=== PATIENT | male | born 1995 | race Two or more races ===

== ENCOUNTER 2018-03-06 19:59 | Inpatient (IN) | payer MEDICAID, OTHER ==
[~2018-03-06] VITALS: Ht 152.4 cm; Wt 56.0 kg
[2018-03-07 05:14] LABS: Basophils # (auto) 0 uL; Basophils % (auto) 0.1 % (0.0-2.0); Eosinophils # (auto) 0 uL; Hematocrit 41.9 % (36.0-46.0); Hemoglobin 14.5 g/dL (12.2-16.2); Lymphocytes # (auto) 1.4 uL; Lymphocytes % (auto) 8.4 % (10.0-50.0); Mean Corpuscular Hemoglobin 30.7 pg (28.0-32.0); Mean Corpuscular Hgb Conc. 34.6 g/dL (32.0-36.0); Mean Corpuscular Volume 88.8 fL (80.0-100.0); Monocytes % (auto) 6.1 % (0.0-12.0); Neutrophils # (auto) 14.4 uL; Neutrophils % (auto) 85.4 % (37.0-80.0); Nucleated Red Blood Cells % 0.1 %; Platelet Count (auto) 289 10^3/uL (140-450); Red Blood Cells 4.72 10^6/uL (4.0-5.20); Urine Bacteria NONE SEEN /hpf (None Seen); Urine Blood Negative /uL (Negative); Urine WBC <1 /hpf (0 - 5); White Blood Cell 16.9 10^3/uL (4.4-10.8)
[2018-03-07 05:28] LABS: Alcohol, Urine < 3.0 mg/dL (0-5); Amphetamine Screen, Urine NEGATIVE (NEGATIVE); Barbiturate Scree,Urine NEGATIVE (NEGATIVE); Benzodiazephine Screen, Urine NEGATIVE (NEGATIVE); Cannabinoid Screen, Urine NEGATIVE (NEGATIVE); Cocaine Screen, Urine NEGATIVE (NEGATIVE); Opiate Scree,Urine NEGATIVE (NEGATIVE); Phencyclidine Screen, Urine NEGATIVE (NEGATIVE)
[2018-03-07 05:29] LABS: Salicylate < 1.7 mg/dL (2.8-20.0)
[2018-03-07 05:30] LABS: Alanine Aminotransferase 46 U/L (13-56); Anion Gap 10 (5-15); Aspartate Aminotransferase 51 U/L (15-37); BUN/Creatinine Ratio 6.8; Blood Alcohol < 3.0 mg/dL (0-5); Blood Urea Nitrogen 6 mg/dL (7-18); Calcium 9.5 mg/dL (8.5-10.1); Carbon Dioxide 25 mmol/L (21-32); Chloride 91 mmol/L (98-107); GFR African American 102 mL/min; GFR Non-African American 85 mL/min; Glucose 105 mg/dL (74-106); Sodium 126 mmol/L (136-145)
[2018-03-07 05:31] LABS: Acetaminophen < 2.0 ug/mL (10-30)
[2018-03-07 05:32] LABS: Alkaline Phosphatase 63 U/L (45-117); Bilirubin, Total 1.3 mg/dL (0.2-1.0); Total Protein 8.4 g/dL (6.4-8.2)
[2018-03-07] MEDS ORDERED: SODIUM CHLORIDE 0.9% 1,000 ML IV ONE ×2 (07:05)
[2018-03-07] MEDS ORDERED: LORazepam 2MG/ML-1ML VIAL IV ONE (07:15)
[2018-03-07] MEDS ORDERED: cefTRIAXone 1GM/10ml IVPUSH 10 ML IV ONE (07:45)
[2018-03-07] MEDS ORDERED: LORazepam 2MG/ML-1ML VIAL IV PRN ×2 (10:00→19:30)
[2018-03-07] MEDS ORDERED: DEXTROSE (50%) 50ML SYRG IV PRN (10:00)
[2018-03-07] MEDS ORDERED: LACTULOSE 20Gm/30ML SOLN PO PRN (10:00)
[2018-03-07] MEDS ORDERED: NITROGLYCERIN 0.4 MG SL TAB SL PRN (10:30)
[2018-03-07] MEDS ORDERED: MORPHINE SULF INJ 2 MG/ML SYRINGE 1ML IV PRN (10:30)
[2018-03-07] MEDS: SODIUM CHLORIDE 0.9% 1,000 ML IV SCH (11:00)
[2018-03-07] MEDS: ENOXAPARIN SOD 40 MG/0.4 ML SYRINGE SC SCH (11:01)
[2018-03-07 11:46] LABS: Folate (Folic Acid) 22.64 ng/mL (5.38-24)
[2018-03-07] MEDS: ACCU-CHEK COMFORT CURVE STRIP VI SCH ×2 (12:00→18:00)
[2018-03-07 17:08] VITALS: BP 122/57
[2018-03-07] MEDS ORDERED: LOXA25CA PO (18:17)
[2018-03-07] MEDS ORDERED: BUPR75TA9 PO (18:17)
[2018-03-07] MEDS ORDERED: OLAN10TA29 PO (18:17)
[2018-03-07] MEDS ORDERED: RANI75SY PO (18:17)
[2018-03-07 22:00] VITALS: BP 133/75
[2018-03-08] MEDS: ACCU-CHEK COMFORT CURVE STRIP VI SCH ×3 (00:16→11:44)
[2018-03-08 05:00] VITALS: BP 109/76
[2018-03-08 05:16] LABS: Basophils # (auto) 0 uL; Basophils % (auto) 0.2 % (0.0-2.0); Eosinophils # (auto) 0 uL; Eosinophils % (auto) 0.3 % (0.0-7.0); Hematocrit 44.1 % (41.0-53.0); Lymphocytes # (auto) 3.3 uL; Lymphocytes % (auto) 34.8 % (10.0-50.0); Mean Corpuscular Hemoglobin 30.8 pg (28.0-32.0); Mean Corpuscular Hgb Conc. 33.9 g/dL (32.0-36.0); Mean Corpuscular Volume 90.8 fL (80.0-100.0); Monocytes # (auto) 0.7 uL; Monocytes % (auto) 7.8 % (0.0-12.0); Neutrophils # (auto) 5.4 uL; Neutrophils % (auto) 56.9 % (37.0-80.0); Nucleated Red Blood Cells % 0.1 %; Platelet Count (auto) 271 10^3/uL (140-450); Red Blood Cells 4.86 10^6/uL (4.5-5.90); White Blood Cell 9.6 10^3/uL (4.4-10.8)
[2018-03-08 05:35] LABS: Albumin 4.7 g/dL (3.4-5.0); BUN/Creatinine Ratio 7.7; Calcium 9.3 mg/dL (8.5-10.1); Potassium 4.1 mmol/L (3.5-5.1)
[2018-03-08 05:38] LABS: Total Protein 8.3 g/dL (6.4-8.2)
[2018-03-08] MEDS: SODIUM CHLORIDE 0.9% 1,000 ML IV SCH (05:52)
[2018-03-08 09:00] VITALS: BP 106/58
[2018-03-08] MEDS: ENOXAPARIN SOD 40 MG/0.4 ML SYRINGE SC SCH (10:21)
[2018-03-08 13:00] VITALS: BP 121/68
[2018-03-08 16:20] VITALS: BP 118/70
[2018-03-08 17:00] VITALS: BP 120/72
== END 2018-03-08 23:30 | DRG 917 ==
LOC: EEVIPCON 20:08 → ER 20:08 → EDSEX 20:08 → TELE 20:09 → EEVIPCON 20:09 → TELE-WESTW 03-07 12:12
PROVIDERS: ADMIT Internal Medicine; ATTEND Internal Medicine
DX: T50.904A Poisoning by unspecified drugs, medicaments and biological substances, undetermined, initial encounter (principal); G92 Toxic encephalopathy; E87.1 Hypo-osmolality and hyponatremia; F31.9 Bipolar disorder, unspecified; D72.829 Elevated white blood cell count, unspecified; F17.200 Nicotine dependence, unspecified, uncomplicated; Z83.3 Family history of diabetes mellitus; Y92.89 Other specified places as the place of occurrence of the external cause
CPT/HCPCS: 36415; 70450; 70551; 71045; 80053; 80307; 80320; 80329; 81001; 82550; 82607; 82746; 82962; 83036; 84443; 85025; 85652; 87040; 87086; 93306; 95819; 96361; 96372; 96374; 96375; J0696